=== PATIENT | male | born 1990 | race Caucasian/White ===

== ENCOUNTER 2017-09-22 15:01 | Emergency (ER) | payer OTHER, BC ==
[2017-09-22] MEDS ORDERED: Ketorolac 60 MG/2 ML SDV IM ONE (16:04)
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
== END 2017-09-22 17:16 | disposition home or self-care (01) ==
LOC: MW.ED 15:01
DX: S09.90XA Unspecified injury of head, initial encounter (principal); F17.210 Nicotine dependence, cigarettes, uncomplicated; Y04.2XXA Assault by strike against or bumped into by another person, initial encounter
CPT/HCPCS: 70450; 96372; 99284; J1885

== ENCOUNTER 2018-04-27 17:20 | Emergency (ER) | payer BC ==
[2018-04-27] MEDS ORDERED: Bupivacaine 0.5% 10 ML SDV INJECT ONE (17:41)
[2018-04-27] MEDS ORDERED: Diphtheria,Pertussis(Acell),Tetanus Vaccine 0.5 ML Syringe IM ONE (17:46)
--- NOTE | 2018-04-27 17:46 | EDM.PDOC ---
ED HPI GENERAL MEDICAL PROBLEM - General Chief Complaint: Laceration Stated Complaint: CUT MIDDLE FINGER Time Seen by Provider: 04/27/18 17:27 Source of Information: Reports: Patient History Limitations: Reports: No Limitations - History of Present Illness INITIAL COMMENTS - FREE TEXT/NARRATIVE: History of present illness: []Patient was working on [employer] at the formerly [facility] [employer] with a sledgehammer and it slipped from his hand and he cut his right middle finger. He denies any other injuries, numbness or tingling. Review of systems: As per history of present illness and below otherwise all systems reviewed and negative. Past medical history: As per history of present illness and as reviewed below otherwise noncontributory. Surgical history: As per history of present illness and as reviewed below otherwise noncontributory. Social history: No reported history of drug or alcohol abuse. Family history: As per history of present illness and as reviewed below otherwise noncontributory. Physical exam: General: Well developed, well nourished in NAD HEENT: Atraumatic, normocephalic, pupils reactive, negative for conjunctival pallor or scleral icterus, mucous membranes moist, throat clear, neck supple, nontender, trachea midline. Lungs: Clear to auscultation, breath sounds equal bilaterally, chest nontender. Heart: S1S2, regular, negative for clicks, rubs, or JVD. Abdomen: Soft, nondistended, nontender. Negative for masses or hepatosplenomegaly. Negative for costovertebral tenderness. Pelvis: Stable nontender. Genitourinary: Deferred. Rectal: Deferred. Extremities: 2 cm "U"-shaped laceration on the dorsal part of his middle finger , no bony deformities or active bleeding negative for cords or calf pain. Neurovascular unremarkable. Neuro: Awake, alert, oriented. Cranial nerves II through XII unremarkable. Cerebellum unremarkable. Motor and sensory unremarkable throughout. Exam nonfocal. Diagnostics: []X-ray right middle finger no fracture. Therapeutics: []Tetanus updated, wound cleaned and sutured Impression: []Right middle finger laceration Plan: []Sutures out 7-10 days, Motrin Tylenol for pain ice and elevate finger Definitive disposition and diagnosis as appropriate pending reevaluation and review of above. Right 3-Middle finger Pain Score (Numeric/FACES): 10 - Related Data Allergies Allergy/AdvReac Type Severity Reaction Status Date / Time No Known Allergies Allergy Verified 04/27/18 17:48 Home Meds: Home Meds . [No Known Home Meds] 09/22/17 [History] Past Medical History - Past Health History Medical/Surgical History: Denies Medical/Surgical History Social & Family History - Family History Family Medical History: Noncontributory - Caffeine Use Caffeine Use: Reports: Soda ED ROS GENERAL - Review of Systems Review Of Systems: See Below (See history of present illness) ED EXAM, SKIN/RASH Exam: See Below (See history of present illness) ED SKIN PROCEDURES - Laceration/Wound Repair Right Middle Finger Appearance: Subcutaneous Distal NVT: Neuro & Vascular Intact Anesthetic Type: Digital Local Anesthesia - Lidocaine (Xylocaine): 1% Plain Local Anesthesia - Bupivicaine (Marcaine): 0.5% Plain Local Anesthetic Volume: 5cc Skin Prep: Chlorhexidine (Hibiciens) Closed with: Sutures Suture Size: other (5.0) Drain Placement: No Sterile Dressing Applied: Nurse Tetanus Status Addressed: Yes Complications: No Course - Vital Signs Last Recorded V/S: Last Vital Signs Temp 96.8 F 04/27/18 17:48 Pulse 84 04/27/18 17:48 Resp 16 04/27/18 17:48 BP 143/88 H 04/27/18 17:48 Pulse Ox 96 04/27/18 17:48 - Orders/Labs/Meds Orders: Active Orders 24 hr Category Date Time Status Vaccines to be Administered [RC] PER UNIT ROUTINE Care 04/27/18 17:46 Active Fingers Third Digit Rt F7 [CR] Stat Exams 04/27/18 17:55 Taken Meds: Medications Discontinued Medications Generic Name Dose Route Start Last Admin Trade Name Freq PRN Reason Stop Dose Admin Bupivacaine HCl 10 ml 04/27/18 17:41 04/27/18 17:58 Sensorcaine-Mpf 0.5% INJECT 04/27/18 17:42 10 ml ONETIME ONE Administration Diphtheria/Tetanus/Acell Pertussis 0.5 ml 04/27/18 17:46 04/27/18 17:58 Adacel IM 04/27/18 17:47 0.5 ml .ONCE ONE Administration Lidocaine HCl 5 ml 04/27/18 17:40 04/27/18 17:57 Xylocaine-Mpf 1% INJECT 04/27/18 17:41 5 ml ONETIME ONE Administration Departure - Departure Time of Disposition: 18:29 Disposition: Home, Self-Care 01 Condition: Good Clinical Impression: Laceration of right middle finger Qualifiers: Encounter type: initial encounter Damage to nail status: unspecified Foreign body presence: without foreign body Qualified Code(s): S61.212A - Laceration without foreign body of right middle finger without damage to nail, initial encounter - Discharge Information Referrals: PCP,None [Primary Care Provider] - Forms: ED Department Discharge Additional Instructions: The following information is given to patients seen in the emergency department who are being discharged to home. This information is to outline your options for follow-up care. We provide all patients seen in our emergency department with a follow-up referral. The need for follow-up, as well as the timing and circumstances, are variable depending upon the specifics of your emergency department visit. If you don't have a primary care physician on staff, we will provide you with a referral. We always advise you to contact your personal physician following an emergency department visit to inform them of the circumstance of the visit and for follow-up with them and/or the need for any referrals to a consulting specialist. The emergency department will also refer you to a specialist when appropriate. This referral assures that you have the opportunity for follow-up care with a specialist. All of these measure are taken in an effort to provide you with optimal care, which includes your follow-up. Under all circumstances we always encourage you to contact your private physician who remains a resource for coordinating your care. When calling for follow-up care, please make the office aware that this follow-up is from your recent emergency room visit. If for any reason you are refused follow-up, please contact the [facility] Emergency Department at and asked to speak to the emergency department charge nurse. Sutures out in 7-10 days Tylenol Motrin for pain where splint for one week [facility] [address] [place] [id number] - My Orders Last 24 Hours: My Active Orders 04/27/18 17:46 Vaccines to be Administered [RC] PER UNIT ROUTINE 04/27/18 17:55 Fingers Third Digit Rt F7 [CR] Stat - Assessment/Plan Last 24 Hours: My Active Orders 04/27/18 17:46 Vaccines to be Administered [RC] PER UNIT ROUTINE 04/27/18 17:55 Fingers Third Digit Rt F7 [CR] Stat
[2018-04-27] MEDS ORDERED: Bacitracin Oint 1 GM U/D Packet TOP ONE (18:32)
--- NOTE | 2018-04-29 14:18 | CR ---
EXAM DATE: 04/27/18 PATIENT'S AGE: 27 Patient: ELIJAH BARCLAY Facility: [place], [place] Site . Site : 1990 Study: XRay Extremity Right 3rd digit [id number] 6:18:19 PM Ordering Physician: Anthony Wilburn Final Report: INDICATION: laceration of 3rd digit TECHNIQUE: Three views of the right middle finger COMPARISON: None FINDINGS: Bones: No fractures or bone lesions. Joint spaces: Unremarkable. Soft tissues: Soft tissue laceration along the proximal interphalangeal joint of the right middle finger. No radiopaque foreign body appreciated. IMPRESSION: Soft tissue laceration along the proximal interphalangeal joint of the right middle finger. No radiopaque foreign body appreciated. No acute bony abnormality. Dictated by Derek Torres MD @ 04/27/2018 7:03:21 PM Dictated by: Derek Torres MD @ 04/27/2018 19:03:28 (Electronic Signature) Report Signed by Proxy. [facility] AMERICAN HOSPITALDavid
== END 2018-04-27 19:05 | disposition home or self-care (01) ==
LOC: MW.ED 17:20
DX: S61.212A Laceration without foreign body of right middle finger without damage to nail, initial encounter (principal); W45.8XXA Other foreign body or object entering through skin, initial encounter; Z23 Encounter for immunization
CPT/HCPCS: 73140-26-F7; 73140-F7; 90471; 90715; 99283-25

== ENCOUNTER 2018-05-07 10:55 | Emergency (ER) | payer BC | END 2018-05-07 11:17 | disposition home or self-care (01) | LOC: MW.ED 10:55 | DX: Z53.21 Procedure and treatment not carried out due to patient leaving prior to being seen by health care provider (principal) ==

== ENCOUNTER 2018-11-22 13:16 | Emergency (ER) | payer BC ==
--- NOTE | 2018-11-22 13:35 | EDM.PDOC ---
ED HPI GENERAL MEDICAL PROBLEM - General Chief Complaint: ENT Problem Stated Complaint: EAR BUD STUCK IN EAR Time Seen by Provider: 11/22/18 13:25 - History of Present Illness INITIAL COMMENTS - FREE TEXT/NARRATIVE: HISTORY AND PHYSICAL: History of present illness: Patient is a 27-year-old white male presents with concern of foreign body to his left ear in the form of an earbud this is since earlier today he denies other trauma or concern Review of systems: As per history of present illness and below otherwise all systems reviewed and negative. Past medical history: As per history of present illness and as reviewed below otherwise noncontributory. Surgical history: As per history of present illness and as reviewed below otherwise noncontributory. Social history: No reported history of drug or alcohol abuse. Family history: As per history of present illness and as reviewed below otherwise noncontributory. Physical exam: HEENT: Atraumatic, normocephalic, pupils reactive, negative for conjunctival pallor or scleral icterus, mucous membranes moist, throat clear, neck supple, nontender, trachea midline. Foreign body in the form of a earbud is noted within the left external auditory canal this was removed with alligator forceps was some residual irritation and erythema of the external auditory canal with no active bleeding tympanic membrane was intact. Without injury Lungs: Clear to auscultation, breath sounds equal bilaterally, chest nontender. Heart: S1S2, regular, negative for clicks, rubs, or JVD. Abdomen: Soft, nondistended, nontender. Negative for masses or hepatosplenomegaly. Negative for costovertebral tenderness. Pelvis: Stable nontender. Genitourinary: Deferred. Rectal: Deferred. Extremities: Atraumatic, negative for cords or calf pain. Neurovascular unremarkable. Neuro: Awake, alert, oriented. Cranial nerves II through XII unremarkable. Cerebellum unremarkable. Motor and sensory unremarkable throughout. Exam nonfocal. Diagnostics: None Therapeutics: Foreign body removal left ear with alligator forceps Impression: #1 foreign body left external auditory canal #2 otitis externa Definitive disposition and diagnosis as appropriate pending reevaluation and review of above. - Related Data Allergies Allergy/AdvReac Type Severity Reaction Status Date / Time No Known Allergies Allergy Verified 04/27/18 17:48 Home Meds: Home Meds . [No Known Home Meds] 09/22/17 [History] Past Medical History - Past Health History Medical/Surgical History: Denies Medical/Surgical History - Infectious Disease History Infectious Disease History: Reports: None Social & Family History - Family History Family Medical History: Noncontributory - Caffeine Use Caffeine Use: Reports: Soda ED ROS GENERAL - Review of Systems Review Of Systems: ROS reveals no pertinent complaints other than HPI. ED EXAM, GENERAL - Physical Exam Exam: See Below (See dictation) Departure - Departure Time of Disposition: 13:34 Disposition: Home, Self-Care 01 Condition: Good Clinical Impression: Otitis externa, Foreign body in left ear - Discharge Information Referrals: PCP,None [Primary Care Provider] - Additional Instructions: The following information is given to patients seen in the emergency department who are being discharged to home. This information is to outline your options for follow-up care. We provide all patients seen in our emergency department with a follow-up referral. The need for follow-up, as well as the timing and circumstances, are variable depending upon the specifics of your emergency department visit. If you don't have a primary care physician on staff, we will provide you with a referral. We always advise you to contact your personal physician following an emergency department visit to inform them of the circumstance of the visit and for follow-up with them and/or the need for any referrals to a consulting specialist. The emergency department will also refer you to a specialist when appropriate. This referral assures that you have the opportunity for followup care with a specialist. All of these measure are taken in an effort to provide you with optimal care, which includes your followup. Under all circumstances we always encourage you to contact your private physician who remains a resource for coordinating your care. When calling for followup care, please make the office aware that this follow-up is from your recent emergency room visit. If for any reason you are refused follow-up, please contact the [facility] emergency department at and asked to speak to the emergency department charge nurse. Cortisporin is prescribed Tylenol as directed follow private medical doctor as needed as discussed and return as needed as discussed
== END 2018-11-22 13:50 | disposition home or self-care (01) ==
LOC: MW.ED 13:16
DX: T16.2XXA Foreign body in left ear, initial encounter (principal); H60.92 Unspecified otitis externa, left ear; W45.8XXA Other foreign body or object entering through skin, initial encounter
CPT/HCPCS: 99282

== ENCOUNTER 2019-01-08 22:10 | Emergency (ER) | payer BC ==
--- NOTE | 2019-01-08 22:36 | EDM.PDOC ---
ED HPI GENERAL MEDICAL PROBLEM - General Chief Complaint: ENT Problem Stated Complaint: COUGHING Time Seen by Provider: 01/08/19 22:29 - History of Present Illness INITIAL COMMENTS - FREE TEXT/NARRATIVE: HISTORY AND PHYSICAL: History of present illness: The patient is a 28-year-old male who did not get his influenza shot this year and has a one-week history of cough or throat and says that when he coughs really hard his throat hurting her more. He's been able to eat and drink despite the throat pain and has been trying to hydrate. He's had no discrete fevers but is felt feverish and has had no chills nausea vomiting or diarrhea. Has had no shortness of breath. Patient is a smoker Review of systems: As per history of present illness and below otherwise all systems reviewed and negative. Past medical history: As per history of present illness and as reviewed below otherwise noncontributory. Surgical history: As per history of present illness and as reviewed below otherwise noncontributory. Social history: No reported history of drug or alcohol abuse. Family history: As per history of present illness and as reviewed below otherwise noncontributory. Physical exam: General: Well-developed well-nourished overweight man who is nontoxic and voice is slightly raspy but does not muffled and he is not breathless. Vital signs are reviewed by me HEENT: Atraumatic, normocephalic, pupils reactive, negative for conjunctival pallor or scleral icterus, mucous membranes moist, throat clear of exudates but the tonsils are reddened bilaterally and not grossly swollen, uvula is midline, there is no cervical adenopathy or nuchal rigidity,, neck supple, nontender, trachea midline. Lungs: Clear to auscultation, breath sounds equal bilaterally, chest nontender. Heart: S1S2, regular rate and rhythm no overt murmurs Abdomen: Soft, nondistended, nontender. NABS Pelvis: Deferred Genitourinary: Deferred. Rectal: Deferred. Extremities: Atraumatic, full range of motion Neurovascular unremarkable. Neuro: Awake, alert, oriented. Cranial nerves II through XII unremarkable. Cerebellum unremarkable. Motor and sensory unremarkable throughout. Exam nonfocal. Diagnostics: Rapid strep influenza chest x-ray Therapeutics: [] Impression: Viral URI with cough/pharyngitis Definitive disposition and diagnosis as appropriate pending reevaluation and review of above. throat Pain Score (Numeric/FACES): 10 - Related Data Allergies Allergy/AdvReac Type Severity Reaction Status Date / Time No Known Allergies Allergy Verified 01/08/19 22:26 Home Meds: Home Meds . [No Known Home Meds] 09/22/17 [History] Past Medical History - Past Health History Medical/Surgical History: Denies Medical/Surgical History - Infectious Disease History Infectious Disease History: Reports: None Social & Family History - Family History Family Medical History: Noncontributory - Caffeine Use Caffeine Use: Reports: Soda ED ROS GENERAL - Review of Systems Review Of Systems: ROS reveals no pertinent complaints other than HPI. ED EXAM, GENERAL - Physical Exam Exam: See Below (See dictation) Course - Vital Signs Last Recorded V/S: Last Vital Signs Temp 36.2 C 01/08/19 22:27 Pulse 76 01/08/19 22:27 Resp 18 01/08/19 22:27 BP 149/71 H 01/08/19 22:27 Pulse Ox 96 01/08/19 22:27 - Orders/Labs/Meds Orders: Active Orders 24 hr Category Date Time Status CULTURE STREP A CONFIRMATION [RM] Stat Lab 01/08/19 22:35 Results STREP SCRN A RAPID W CULT CONF [RM] Stat Lab 01/08/19 22:35 Results Departure - Departure Time of Disposition: 23:24 Disposition: Home, Self-Care 01 Condition: Good Clinical Impression: Viral URI with cough Pharyngitis Qualifiers: Pharyngitis/tonsillitis etiology: unspecified etiology Qualified Code(s): J02.9 - Acute pharyngitis, unspecified - Discharge Information Referrals: PCP,None [Primary Care Provider] - Forms: ED Department Discharge Additional Instructions: The following information is given to patients seen in the emergency department who are being discharged to home. This information is to outline your options for follow-up care. We provide all patients seen in our emergency department with a follow-up referral. The need for follow-up, as well as the timing and circumstances, are variable depending upon the specifics of your emergency department visit. If you don't have a primary care physician on staff, we will provide you with a referral. We always advise you to contact your personal physician following an emergency department visit to inform them of the circumstance of the visit and for follow-up with them and/or the need for any referrals to a consulting specialist. The emergency department will also refer you to a specialist when appropriate. This referral assures that you have the opportunity for followup care with a specialist. All of these measure are taken in an effort to provide you with optimal care, which includes your followup. Under all circumstances we always encourage you to contact your private physician who remains a resource for coordinating your care. When calling for followup care, please make the office aware that this follow-up is from your recent emergency room visit. If for any reason you are refused follow-up, please contact the [facility] emergency department at and ask to speak to the emergency department charge nurse. [facility] Primary care- Internal Medicine and Family [address] [address] Interview to push hydration and avoid Products and try to reduce and/or quit tobacco use. Use [id number] medications for fevers and body aches as you choose as well as cough medications as you choose.: Schedule a follow-up appointment in our clinic for reevaluation and further care and return to ER as needed and as discussed. Use medications as prescribed, Phenergan with codeine for your cough at bedtime, that were given to you from [employer] [facility] - My Orders Last 24 Hours: My Active Orders 01/08/19 22:35 CULTURE STREP A CONFIRMATION [RM] Stat STREP SCRN A RAPID W CULT CONF [RM] Stat - Assessment/Plan Last 24 Hours: My Active Orders 01/08/19 22:35 CULTURE STREP A CONFIRMATION [RM] Stat STREP SCRN A RAPID W CULT CONF [RM] Stat
--- NOTE | 2019-01-08 23:22 | CR ---
INDICATION: TECHNIQUE: Chest 2 views. COMPARISON: None. FINDINGS: Cardiovascular and mediastinum: Heart size and vasculature are normal in caliber and appearance. Mediastinum is within normal limits. Lungs and pleural spaces: Lungs are clear. No sign of infiltrate or mass. No sign of pleural effusion. No pneumothorax. Bones and soft tissues: No significant findings. IMPRESSION: Unremarkable chest. Dictated by: Doug Hameed MD @ 01/08/2019 23:21:00 (Electronically Signed)
== END 2019-01-08 23:35 | disposition home or self-care (01) ==
LOC: MW.ED 22:10
DX: J02.9 Acute pharyngitis, unspecified (principal)
CPT/HCPCS: 71046; 71046-26; 87081; 87804; 87880-QW; 99283-25